=== PATIENT | male | born 1995 | race Two or more races ===

== ENCOUNTER 2022-11-30 22:20 | Emergency (ER) | payer SELFPAY ==
[~2022-11-30] VITALS: Ht 180.3 cm; Wt 72.6 kg
--- NOTE | 2022-11-30 22:55 | NUR ---
BIBS FOR R ARM PAIN AND BRUISE S/P FALL IN THE SHOUWER YESTERDAY -KO. PATIENT IS [id number]. ABLE TO MAKE NEEDS KNOWN. PATIENT HAS BRUISING AND SWELLING ON RIGHT UPPER ARM. LIMITED ROM. NEEDS TO ASSIST RIGHT ARM WITH LEFT ARM IF ELEVATING THE ARM. PLACED COMFORTABLY IN BED.
[2022-12-01] MEDS ORDERED: IBUP-1953 PO (00:21)
--- NOTE | 2022-12-01 00:27 | NUR ---
Patient discharged to home in stable condition. Written and verbal after care instructions given. Patient verbalizes understanding of instruction.
[2022-12-01 01:13] VITALS: BP 133/84
== END 2022-12-01 01:14 | disposition home or self-care (01) ==
LOC: ER 22:24
DX: S42.254A Nondisplaced fracture of greater tuberosity of right humerus, initial encounter for closed fracture (principal); Z60.2 Problems related to living alone; W18.2XXA Fall in (into) shower or empty bathtub, initial encounter; Y93.89 Activity, other specified; Y92.89 Other specified places as the place of occurrence of the external cause; Y99.8 Other external cause status
CPT/HCPCS: 73030-TC; 73060-TC